=== PATIENT | male | born 1955 | race Caucasian/White ===

== ENCOUNTER 2017-10-16 00:41 | Observation (INO) | payer MEDICAID ==
[~2017-10-16] VITALS: Ht 165.1 cm; Wt 68.9 kg
[~2017-10-16 00:41] MED LIST: AMIT-188 PO; ASPI-986 PO; ATEN50TA PO; BACL-141 PO; Diclofenac Sodium PO; GABA300C PO; IBUP-2030 PO; LIPITOR PO; MILN50TA PO; NITR0.4T SL; OMEP20CA10 PO; PLAVIX PO; PREG50CA PO; QUIN20TA PO; RANI150T7 PO
[2017-10-16 02:48] LABS: BASOPHILS % 1.4 % (0.0-2.0); EOSINOPHILS % 1.7 % (0.0-5.0); HEMATOCRIT. 49.3 % (42.0-52.0); HEMOGLOBIN. 16.8 g/dL (14.0-18.0); LYMPHOCYTES % 38.9 % (20.0-50.0); MEAN CORPUSCULAR HEMOGLOBIN 29.3 pg (28.0-32.0); MEAN CORPUSCULAR VOLUME 86.2 fL (80.0-94.0); MEAN PLATELET VOLUME 8.1 fl (7.4-10.4); MONOCYTES % 9.8 % (2.0-8.0); NEUTROPHILS % 48.2 % (40.0-76.0); PLATELET 168 x1000/uL (130-400); RED BLOOD CELL COUNT 5.72 mill/uL (4.7-6.1); RED CELL DISTRIBUTION WIDTH 13.9 % (11.6-14.6)
[2017-10-16 02:55] LABS: PROTHROMBIN TIME 10.4 sec (9.4-11.6)
[2017-10-16 03:00] LABS: CHLORIDE 104 mEq/L (98-107)
[2017-10-16] MEDS ORDERED: NITROGLYCERIN 0.4MG TABLET SL SL SCH (04:22)
[2017-10-16] MEDS ORDERED: ASPIRIN 325MG EC TABLET PO SCH (04:30)
[2017-10-16] MEDS ORDERED: NITROGLYCERIN 0.4MG TABLET SL SL PRN (04:30)
[2017-10-16] MEDS ORDERED: ENOXAPARIN 80MG/0.8ML SYR SUBCUT SCH (09:00)
[2017-10-16 12:00] VITALS: BP 143/71
[2017-10-16] MEDS ORDERED: DOCUSATE SODIUM 100MG CAPSULE PO PRN (13:15)
[2017-10-16] MEDS ORDERED: HYDROCODONE/ACETAMINOPHEN 10/325MG TABLET PO PRN (13:15)
[2017-10-16] MEDS ORDERED: LORAZEPAM 0.5MG TABLET PO PRN (13:15)
[2017-10-16] MEDS ORDERED: DIPHENHYDRAMINE 50MG/ML VIAL IV PRN (13:15)
[2017-10-16] MEDS ORDERED: GUAIFENESIN 200MG/10ML SUGAR FREE UDC PO PRN (13:15)
[2017-10-16] MEDS ORDERED: NA PHOS,M-B/NA PHOS,DI-BA ENEMA 118ML PR PRN (13:15)
[2017-10-16] MEDS ORDERED: MORPHINE SULFATE 2 MG/ML CPJ (NOT FOR IM USE) IV PRN (13:15)
[2017-10-16] MEDS ORDERED: HYDROCODONE/ACETAMINOPHEN 5/325MG TABLET PO PRN (13:15)
[2017-10-16] MEDS ORDERED: ONDANSETRON HCL 4MG/2ML VIAL IV PRN (13:15)
[2017-10-16] MEDS ORDERED: CLONIDINE 0.1MG TABLET PO PRN (13:15)
[2017-10-16] MEDS ORDERED: ACETAMINOPHEN 325MG TABLET PO PRN (13:15)
[2017-10-16] MEDS ORDERED: MORPHINE SULFATE 4 MG/ML CPJ (NOT FOR IM USE) IV PRN (13:36)
[2017-10-16] MEDS ORDERED: CLONIDINE 0.2MG TABLET PO PRN ×2 (13:45)
[2017-10-16] MEDS ORDERED: REGADENOSON 0.4 MG/5 ML IV SCH (13:45)
[2017-10-16] MEDS: LOSARTAN POTASSIUM 25 MG TABLET PO SCH (14:15)
[2017-10-16] MEDS ORDERED: BENA20TA3 PO (14:39)
[2017-10-16 14:40] VITALS: BP 143/71
[2017-10-16] MEDS: ATENOLOL 50 MG TABLET PO SCH (14:55)
[2017-10-16 16:00] VITALS: BP 119/70
[2017-10-16] MEDS: ASPIRIN 325MG EC TABLET PO SCH (18:11)
[2017-10-16] MEDS ORDERED: RANI150T7 PO (18:33)
[2017-10-16 19:47] LABS: CLARITY URINE CLEAR (CLEAR); COLOR URINE YELLOW (YELLOW); KETONES URINE NEGATIVE (NEGATIVE); LEUKOCYTE ESTERASE URINE NEGATIVE (NEGATIVE); NITRITE URINE NEGATIVE (NEGATIVE); OCCULT BLOOD URINE NEGATIVE (NEGATIVE); PROTEIN URINE NEGATIVE (NEGATIVE); SPECIFIC GRAVITY URINE 1.008 (1.005-1.030); UROBILINOGEN URINE 0.2 E.U./dL (0.2-1.0)
[2017-10-16 20:00] VITALS: BP 121/67
[2017-10-16 20:02] LABS: *BENZODIAZEPINES SCREEN URINE NEGATIVE (NEGATIVE); *COCAINE SCREEN URINE NEGATIVE (NEGATIVE); METHADONE URINE SCREEN NEGATIVE (NEGATIVE); OPIATES URINE SCREEN NEGATIVE (NEGATIVE); PHENCYCLIDINE URINE SCREEN NEGATIVE (NEGATIVE)
[2017-10-16 20:03] LABS: *AMPHETAMINES SCREEN URINE NEGATIVE (NEGATIVE); *BARBITURATES SCREEN URINE NEGATIVE (NEGATIVE); CANNABINOID URINE SCREEN NEGATIVE (NEGATIVE)
[2017-10-16] MEDS: FAMOTIDINE 20MG TABLET PO SCH (22:17)
[2017-10-17] VITALS: BP 116/70
[2017-10-17 04:00] VITALS: BP 126/72
[2017-10-17 07:16] LABS: BASOPHILS % 1.4 % (0.0-2.0); EOSINOPHILS % 1.9 % (0.0-5.0); HEMATOCRIT. 47.7 % (42.0-52.0); HEMOGLOBIN. 16.6 g/dL (14.0-18.0); LYMPHOCYTES % 40.6 % (20.0-50.0); MEAN CORPUSCULAR HEMOGLOBIN 29.7 pg (28.0-32.0); MEAN CORPUSCULAR VOLUME 85.4 fL (80.0-94.0); MEAN PLATELET VOLUME 8.7 fl (7.4-10.4); MONOCYTES % 9.2 % (2.0-8.0); NEUTROPHILS % 46.9 % (40.0-76.0); PLATELET 160 x1000/uL (130-400); RED BLOOD CELL COUNT 5.59 mill/uL (4.7-6.1)
[2017-10-17 07:34] LABS: CHLORIDE 105 mEq/L (98-107)
[2017-10-17 07:45] LABS: CREATINE KINASE 195 IU/L (39-308); CREATINE KINASE MB FRACTION 0.9 ng/mL (0.5-3.6); HDL CHOLESTEROL 32 mg/dL (40-59); LDL CHOLESTEROL 62 mg/dL (5-100)
[2017-10-17 08:00] VITALS: BP 105/64
[2017-10-17] MEDS: LOSARTAN POTASSIUM 25 MG TABLET PO SCH (08:20)
[2017-10-17] MEDS: ATENOLOL 50 MG TABLET PO SCH (08:21)
[2017-10-17] MEDS: FAMOTIDINE 20MG TABLET PO SCH (08:43)
[2017-10-17] MEDS: ASPIRIN 325MG EC TABLET PO SCH (08:44)
[2017-10-17] MEDS ORDERED: NON FORMULARY PATIENT HOME MED EA PO SCH (09:00)
[2017-10-17] MEDS ORDERED: REGADENOSON 0.4 MG/5 ML IV ONE (09:44)
[2017-10-17 15:46] VITALS: BP 111/77
[2017-10-17] MEDS ORDERED: ATORVASTATIN CALCIUM 40MG TABLET PO SCH (21:00)
== END 2017-10-17 17:05 | disposition home or self-care (01) ==
LOC: ER 00:41 → 7WST 06:05 → INTOOBSV 06:05 → ENRESERV 10:56
PROVIDERS: ADMIT Internal Medicine; ATTEND Internal Medicine
DX: R07.89 Other chest pain (principal); I25.10 Atherosclerotic heart disease of native coronary artery without angina pectoris; R13.10 Dysphagia, unspecified; I10 Essential (primary) hypertension; I25.2 Old myocardial infarction; K21.9 Gastro-esophageal reflux disease without esophagitis; E78.5 Hyperlipidemia, unspecified; M79.7 Fibromyalgia; Z95.5 Presence of coronary angioplasty implant and graft
CPT/HCPCS: 36415; 71045; 78452; 80053; 80061; 80305; 81003; 82550; 82553; 83735; 83880; 84443; 84484; 85025; 85379; 85610; 92610; 93005; 93017; 93970; 97162; 99285; A9500; G0378; J2785

== ENCOUNTER 2018-11-07 15:09 | Emergency (ER) | payer MEDICAID ==
[~2018-11-07] VITALS: Ht 172.7 cm; Wt 82.0 kg
[~2018-11-07 15:09] MED LIST changes: -AMIT-188 PO; -BACL-141 PO; +BENA20TA10 PO; -Diclofenac Sodium PO; -GABA300C PO; -IBUP-2030 PO; -MILN50TA PO; -OMEP20CA10 PO; -PLAVIX PO; -PREG50CA PO
[2018-11-07] MEDS ORDERED: ONDANSETRON HCL 4MG/2ML INJ IV STA (15:53)
[2018-11-07] MEDS ORDERED: SODIUM CHLORIDE 0.9% 1,000 ML IV ONE (16:00)
[2018-11-07] MEDS ORDERED: MECLIZINE 25MG TABLET PO ONE (16:00)
[2018-11-07 16:20] LABS: BASOPHILS % 0.5 % (0.0-2.0); HEMATOCRIT. 46.6 % (42.0-52.0); HEMOGLOBIN. 16.3 g/dL (14.0-18.0); LYMPHOCYTES % 11.7 % (20.0-50.0); MEAN CORPUSCULAR HEMOGLOBIN 30.1 pg (28.0-32.0); MEAN CORPUSCULAR VOLUME 86.1 fL (80.0-94.0); MEAN PLATELET VOLUME 7.9 fl (7.4-10.4); MONOCYTES % 4.2 % (2.0-8.0); NEUTROPHILS % 83.6 % (40.0-76.0); PLATELET 173 x1000/uL (130-400); RED BLOOD CELL COUNT 5.41 mill/uL (4.7-6.1); RED CELL DISTRIBUTION WIDTH 14.3 % (11.6-14.6)
[2018-11-07 16:25] LABS: CHLORIDE 104 mEq/L (98-107)
[2018-11-07 18:09] VITALS: BP 120/73
== END 2018-11-07 18:32 | disposition home or self-care (01) ==
LOC: ER 15:09
DX: R42 Dizziness and giddiness (principal); R11.2 Nausea with vomiting, unspecified; I10 Essential (primary) hypertension; Z79.82 Long term (current) use of aspirin
CPT/HCPCS: 36415; 70450; 80053; 85025; 96361; 96374; 99284; J2405; J7030; J8597

== ENCOUNTER 2020-11-16 10:59 | Emergency (ER) | payer BC, OTHER ==
[~2020-11-16] VITALS: Ht 172.7 cm; Wt 78.0 kg
[2020-11-16] MEDS ORDERED: MORPHINE SULFATE 2 MG/ML CPJ (NOT FOR IM USE) IV ONE (11:30)
[2020-11-16] MEDS ORDERED: ONDANSETRON HCL 4MG/2ML INJ IV ONE (11:30)
[2020-11-16 11:54] LABS: BASOPHILS % 1.2 % (0.0-2.0); EOSINOPHILS % 0.7 % (0.0-5.0); HEMATOCRIT. 46.8 % (42.0-52.0); HEMOGLOBIN. 16.4 g/dL (14.0-18.0); LYMPHOCYTES % 41.4 % (20.0-50.0); MEAN CORPUSCULAR HEMOGLOBIN 30.7 pg (28.0-32.0); MEAN CORPUSCULAR VOLUME 87.6 fL (80.0-94.0); MEAN PLATELET VOLUME 7.8 fl (7.4-10.4); MONOCYTES % 6.5 % (2.0-8.0); NEUTROPHILS % 50.2 % (40.0-76.0); PLATELET 182 x1000/uL (130-400); RED BLOOD CELL COUNT 5.34 mill/uL (4.7-6.1); RED CELL DISTRIBUTION WIDTH 14.3 % (11.6-14.6)
[2020-11-16 12:01] LABS: CHLORIDE 105 mEq/L (98-107)
[2020-11-16 12:49] LABS: CLARITY URINE CLEAR (CLEAR); COLOR URINE YELLOW (YELLOW); KETONES URINE NEGATIVE (NEGATIVE); LEUKOCYTE ESTERASE URINE NEGATIVE (NEGATIVE); NITRITE URINE NEGATIVE (NEGATIVE); OCCULT BLOOD URINE NEGATIVE (NEGATIVE); PH URINE 6.5 (4.5-8.0); PROTEIN URINE NEGATIVE (NEGATIVE); SPECIFIC GRAVITY URINE 1.009 (1.005-1.030); UROBILINOGEN URINE 0.2 E.U./dL (0.2-1.0)
[2020-11-16] MEDS ORDERED: IOHEXOL-300 100 ML BOTTLE ONE (15:14)
[2020-11-16 16:45] VITALS: BP 130/75
== END 2020-11-16 16:45 | disposition home or self-care (01) ==
LOC: ER 10:59
DX: K44.9 Diaphragmatic hernia without obstruction or gangrene (principal); I10 Essential (primary) hypertension; Z79.82 Long term (current) use of aspirin
CPT/HCPCS: 36415; 74177; 80053; 81003; 83690; 85025; 93005; 96374; 96375; 99285; J2270; J2405; Q9967

== ENCOUNTER 2022-12-06 11:23 | Emergency (ER) | payer BC, MEDICAID ==
[~2022-12-06] VITALS: Ht 165.1 cm; Wt 73.0 kg
[~2022-12-06 11:23] MED LIST changes: +ASPI-1497 PO; -ASPI-986 PO; +ATEN-42 PO; -ATEN50TA PO; +ATOR-2 PO; +BENA-8 PO; -BENA20TA10 PO; +CLOP-31 PO; +GABA-532 PO; -LIPITOR PO; -NITR0.4T SL; +OMEP40CA20 PO; -QUIN20TA PO; -RANI150T7 PO
[2022-12-06 12:27] LABS: BASOPHILS % 1.4 % (0.0-2.0); CLARITY URINE CLOUDY (CLEAR); COLOR URINE YELLOW (YELLOW); EOSINOPHILS % 0.6 % (0.0-5.0); HEMATOCRIT. 48.4 % (42.0-52.0); HEMOGLOBIN. 16.7 g/dL (14.0-18.0); KETONES URINE NEGATIVE (NEGATIVE); LEUKOCYTE ESTERASE URINE NEGATIVE (NEGATIVE); LYMPHOCYTES % 35.8 % (20.0-50.0); MEAN CORPUSCULAR VOLUME 86.9 fL (80.0-94.0); MEAN PLATELET VOLUME 7.6 fl (7.4-10.4); MONOCYTES % 9.6 % (2.0-8.0); NEUTROPHILS % 52.6 % (40.0-76.0); NITRITE URINE NEGATIVE (NEGATIVE); OCCULT BLOOD URINE NEGATIVE (NEGATIVE); PH URINE 5.5 (4.5-8.0); PLATELET 189 x1000/uL (130-400); PROTEIN URINE NEGATIVE (NEGATIVE); RED BLOOD CELL COUNT 5.57 mill/uL (4.7-6.1); RED CELL DISTRIBUTION WIDTH 14.6 % (11.6-14.6); SPECIFIC GRAVITY URINE 1.016 (1.005-1.030); UROBILINOGEN URINE 0.2 E.U./dL (0.2-1.0)
[2022-12-06 12:43] LABS: CHLORIDE 106 mEq/L (98-107)
[2022-12-06] MEDS ORDERED: ONDANSETRON HCL 4MG/2ML INJ IV STA (13:12)
[2022-12-06] MEDS ORDERED: KETOROLAC 30MG/ML VIAL IV STA (13:12)
[2022-12-06] MEDS ORDERED: SODIUM CHLORIDE 0.9% 1,000 ML IV ONE (13:15)
[2022-12-06 17:28] VITALS: BP 149/89
== END 2022-12-06 17:33 | disposition home or self-care (01) ==
LOC: ER 11:23
DX: N40.0 Benign prostatic hyperplasia without lower urinary tract symptoms (principal); R33.9 Retention of urine, unspecified; I11.9 Hypertensive heart disease without heart failure; I25.2 Old myocardial infarction; E11.9 Type 2 diabetes mellitus without complications; Z79.82 Long term (current) use of aspirin
CPT/HCPCS: 36415; 51702; 74176; 80053; 81003; 83690; 85025; 96361; 96374; 96375; 99285; J1885; J2405; J7030

== ENCOUNTER 2022-12-12 09:13 | Emergency (ER) | payer BC, MEDICAID ==
[~2022-12-12] VITALS: Ht 165.1 cm; Wt 70.0 kg
[2022-12-12 10:35] LABS: BASOPHILS % 0.7 % (0.0-2.0); EOSINOPHILS % 0.8 % (0.0-5.0); HEMATOCRIT. 46.8 % (42.0-52.0); HEMOGLOBIN. 16.1 g/dL (14.0-18.0); LYMPHOCYTES % 13.2 % (20.0-50.0); MEAN CORPUSCULAR HEMOGLOBIN 29.9 pg (28.0-32.0); MEAN CORPUSCULAR VOLUME 86.6 fL (80.0-94.0); NEUTROPHILS % 76.3 % (40.0-76.0); PLATELET 218 x1000/uL (130-400); RED BLOOD CELL COUNT 5.41 mill/uL (4.7-6.1); RED CELL DISTRIBUTION WIDTH 14.2 % (11.6-14.6)
[2022-12-12 10:44] LABS: CHLORIDE 105 mEq/L (98-107)
[2022-12-12 10:46] LABS: PROTHROMBIN TIME 10.3 sec (9.6-11.0)
[2022-12-12 11:27] LABS: CLARITY URINE TURBID (CLEAR); COLOR URINE ORANGE (YELLOW); KETONES URINE NEGATIVE (NEGATIVE); LEUKOCYTE ESTERASE URINE 3+ (NEGATIVE); NITRITE URINE POSITIVE (NEGATIVE); OCCULT BLOOD URINE 3+ (NEGATIVE); PH URINE >=9.0 (4.5-8.0); PROTEIN URINE 3+ (NEGATIVE); SPECIFIC GRAVITY URINE 1.017 (1.005-1.030)
[2022-12-12] MEDS ORDERED: OXYCODONE HCL/ACETAMINOPHEN 5/325MG TABLET PO ONE (11:30)
[2022-12-12] MEDS ORDERED: TOPUD PO (12:49)
[2022-12-12] MEDS ORDERED: NITR100C PO (12:49)
[2022-12-12 13:31] VITALS: BP 113/68
== END 2022-12-12 13:51 | disposition home or self-care (01) ==
LOC: ER 10:01 → CANBEDREQ 23:32
DX: N39.0 Urinary tract infection, site not specified (principal); I11.9 Hypertensive heart disease without heart failure; I25.2 Old myocardial infarction; E78.00 Pure hypercholesterolemia, unspecified; Z79.82 Long term (current) use of aspirin
CPT/HCPCS: 36415; 74176; 80053; 81003; 85025; 99285